=== PATIENT | female | born 1975 | race Caucasian/White ===

== ENCOUNTER → 2020-12-03 | Outpatient (CLI) | payer BC ==
[2020-12-03 08:33] LABS: HEMOGLOBIN 14.3 gm/dl (12.3-15.3); RED BLOOD COUNT 4.69 M/UL (4.00-5.10); WHITE BLOOD COUNT 5.9 K/UL (4.5-11.0)
[2020-12-04 06:42] LABS: CREATININE, URINE 93.4 mg/dL (Not Estab.); MICROALB/CREAT RATIO <3 (0-29)
[2020-12-04 08:10] LABS: THYROXINE (T4) 7.9 ug/dL (4.5-12.0)
[2020-12-05 04:06] LABS: VITAMIN D, 25-HYDROXY 37.2 ng/mL (30.0-100.0)
== END ==
LOC: LAB 07:32
PROVIDERS: Nurse Practitioner
DX: E11.9 Type 2 diabetes mellitus without complications (principal); N17.9 Acute kidney failure, unspecified; R53.83 Other fatigue
CPT/HCPCS: 80053; 80061; 81001; 82043; 82570; 83036; 84436; 84443; 84480; 85025